=== PATIENT | female | born 1970 | race African-American/Black ===

== ENCOUNTER 2017-01-30 10:24 | Emergency (ER) | payer OTHER ==
--- NOTE | ~2017-01-30 | EKG ---
PATIENT: CHEPE THORNTON UNIT #: [id number] Ventricular Rate: 100 BPM Atrial Rate: 100 BPM P-R Interval: 140 ms QRS Duration: 64 ms Q-T Interval: 336 ms QTC Calculation(Bezet): 433 ms P Hamler: 53 degrees Calculated R Hamler: 1 degrees Calculated T Hamler: 8 degrees Diagnosis Line: Normal sinus rhythm Diagnosis Line: Possible Left atrial enlargement Diagnosis Line: Borderline ECG Diagnosis Line: When compared with ECG of 21-SEP-2015 12:08, Diagnosis Line: No significant change was found Diagnosis Line: Confirmed by CATIE ESCOBEDO MD ([id number]) on Diagnosis Line: 02/09/2017 6:30:19 AM INTERPRETING : RIAN
[~2017-01-30 10:24] MED LIST: ANTIVERT PO; AZITHROMYCIN250 MG PO; IBUPROFEN800 MG PO; KLONOPIN0.5 M3; KLONOPIN1 MG; KLONOPIN1 MG PO; LYRICA PO; MUCINEX DM ER1 EAC1 PO; OMNICEF PO; PREDNISONE PO; REBIF44 MC1 IM; ROBITUSSIN A-C S5 ML PO; VIBRAMYCIN100 M1 PO; VITAMIN D50000 UNIT PO; VOLTAREN75 MG PO; ZITHROMAX PO; ZOLOFT PO
[2017-01-30] MEDS ORDERED: TYLENOL #3 (10:45)
[2017-01-30 11:10] LABS: BASOPHIL# 0.1 X10e3 (0-0.3); BASOPHIL% 1.1 % (0-2.5); EOSINOPHIL# 0.1 X10e3 (0-0.7); EOSINOPHIL% 1.5 % (0.0-7.0); HEMATOCRIT 35.5 % (35.0-45.0); HEMOGLOBIN 11.9 gm/dL (12.0-16.0); LYMPHOCYTE# 1.4 X10e3 (1.0-3.5); LYMPHOCYTE% 29.6 % (17.0-45.0); MEAN CELL VOLUME 88.4 FL (83-96); MEAN CORPUSCULAR HEMOGLOBIN 29.7 PG (28-34); MEAN CORPUSCULAR HGB CONC 33.6 g/dL (30-36); MEAN PLATELET VOLUME 6.6 FL (6.5-11.5); MONOCYTE# 0.6 X10e3 (0-1.0); MONOCYTE% 11.9 % (3.0-12.0); NEUTROPHIL# 2.6 X10e3 (1.5-7.1); NEUTROPHIL% 55.9 % (40-75); PLATELET COUNT 272 X10e3 (140-420); RED BLOOD COUNT 4.02 X10e (3.90-5.30); RED CELL DISTRIBUTION WIDTH 13.7 % (11.0-15.5); WHITE BLOOD COUNT 4.6 X10e3 (4.0-10.5)
[2017-01-30 11:12] LABS: DIFF IND NO
[2017-01-30 11:22] LABS: POC - CKMB <1.0 ng/mL (0.0-7.9); POC - MYOGLOBIN 32.1 ng/mL (0.0-169.0); POC - TROPONIN <0.05 ng/mL (<=0.05)
[2017-01-30 11:26] LABS: URINE APPEARANCE CLEAR; URINE BILIRUBIN NEG (NEG); URINE COLOR YELLOW; URINE GLUCOSE NEG (NORM); URINE KETONE NEG (NEG); URINE LEUKOCYTE ESTERASE NEG (NEG); URINE NITRATE NEG (NEG); URINE PH 6.5 (5-8); URINE PROTEIN NEG (NEG); URINE SOURCE CLEAN CATCH; URINE UROBILINOGEN 0.2 MG/DL (NORM)
[2017-01-30 11:30] LABS: MICRO INDICATED? NO; URINE BLOOD NEG (NEG)
[2017-01-30 11:33] LABS: ALBUMIN SERUM 4.4 g/dL (3.5-5.0); BILIRUBIN,TOTAL 0.7 mg/dL (0.2-2.0); CALCIUM SERUM 8.8 mg/dL (8.4-10.2); CREATININE SERUM 0.5 mg/dL (0.6-1.4); GLOM FILT RATE Estimated 134.5 mL/min (>60); PROTEIN TOTAL SERUM 7.9 g/dL (6.0-8.3)
[2017-01-30 12:07] LABS: AMPHETAMINE NEG (NEG); BARBITURATES NEG (NEG); BENZODIAZEPINES NEG (NEG); COCAINE NEG (NEG); MARIJUANA NEG (NEG); OPIATES POS (NEG); TRICYCLIC ANTIDEPRESSANTS NEG (NEG); U METHADONE NEG (NEG)
== END 2017-01-30 13:28 | disposition home or self-care (01) ==
LOC: SED 10:24
PROVIDERS: Nurse Practitioner Family
DX: E86.0 Dehydration (principal); F41.9 Anxiety disorder, unspecified; F32.9 Major depressive disorder, single episode, unspecified; Z88.0 Allergy status to penicillin; Z88.2 Allergy status to sulfonamides
CPT/HCPCS: 36415; 80053; 80307; 81003; 82553; 83874; 84484; 84703; 85025; 93005; 99284

== ENCOUNTER → 2017-02-12 | Outpatient (CLI) | payer OTHER ==
[~2017-02-12] MED LIST changes: +TYLENOL #3
--- NOTE | ~2017-02-12 | US128 ---
[id number] [facility] [place] [address] [place], [place] [address] [id number] O MR#: [id number] Acc #: [id number] NAME: CHEPE THORNTON : 1970 SEX: F STUDY DATE/TIME: 02/12/2017 13:42 UNIT: [facility]US ROOM: STUDY DESCRIPTION: US Thyroid Attending Physician: Nancy Whalen A.P.R.N. Referring Physician: Nancy Whalen A.P.R.N. Ordering Physician: Nancy Whalen A.P.R.N. Primary Care Physician: Nancy Whalen A.P.R.N. MEDICAL IMAGING REPORT This report is preliminary unless electronic signature is present EXAM Thyroid ultrasound. INDICATIONS Multiple thyroid nodules identified on the MRI performed in November. TECHNIQUE Mallory-scale and color Doppler sonographic images were obtained through the thyroid gland. FINDINGS Thyroid gland is enlarged, right lobe measures 5.2 x 1.6 x 1.2 cm. Left lobe measures 5.9 x 2.0 x 1.9 cm. Isthmus measures about 5 mm in thickness. There is a solid nodule seen straddling the isthmus, measuring about 1.0 x 1.1 x 0.5 cm. It is essentially isoechoic to thyroid parenchyma with an associated hypoechoic rim. Within the left lobe of the thyroid gland. There is a 7 x 6 x 6 mm mildly hyperechoic nodule. Inferior to this, there is a predominately cystic nodule measuring 8 x 7 x 7 mm, and more inferiorly, there is a heterogeneous nodule measuring 1.1 x 0.8 x 1.4 cm. IMPRESSION 1. Several thyroid nodules as detailed above. None of these meet size criteria for percutaneous sampling at this time. Short-term sonographic follow up in 6 months is recommended. 2. Thyromegaly. Dictated by... Areli Johnson M.D. THIS IS AN ELECTRONICALLY VERIFIED REPORT Areli Johnson M.D. at 02/13/2017 12:50 PM MARY KAY/roxana TD: 02/12/2017 21:36 JOB #: [id number] MEDICAL IMAGING REPORT Page 1 of 1 COPY
== END | disposition home or self-care (01) ==
LOC: CGUS 02-11 15:00
DX: E04.1 Nontoxic single thyroid nodule (principal); E01.0 Iodine-deficiency related diffuse (endemic) goiter; E04.2 Nontoxic multinodular goiter
CPT/HCPCS: 76536